=== PATIENT | male | born 1955 | race Caucasian/White ===

== ENCOUNTER 2019-06-04 08:42 | Day surgery (SDC) | payer BC ==
[~2019-06-04 08:42] MED LIST: ACETAMINOPHEN 1,000 MG/100 ML BTL IVPB ONE
[2019-06-04] MEDS ORDERED: DEXAMETHASONE 4 MG/ML 1ML VIAL IVP ONE (08:43)
[2019-06-04] MEDS ORDERED: ONDANSETRON HCL IV 4 MG/2 ML VIAL IVP ONE (08:43)
[2019-06-04] MEDS ORDERED: KETOROLAC 30 MG/ML VIAL IVP ONE (08:43)
[2019-06-04] MEDS ORDERED: LIDOCAINE 2% MDV (20MG/ML) 20ML VIAL IV ONE (08:43)
[2019-06-04] MEDS ORDERED: SEVOFLURANE 250 ML INH ONE (08:43)
[2019-06-04] MEDS ORDERED: MIDAZOLAM HCL 2MG/2ML VIAL IV ONE (08:43)
[2019-06-04] MEDS ORDERED: FENTANYL PF 100MCG/2ML VIAL IV ONE (08:43)
[2019-06-04] MEDS ORDERED: PROPOFOL 10 MG/ML VIAL IV ONE (08:43)
[2019-06-04 08:55] LABS: ABSOLUTE NEUTROPHIL COUNT 3.67; BASO % 0.3 % (0-6); EOS % 2.1 % (0-6); GRAN % 54.7 % (47-80); HEMATOCRIT 44.8 % (42.0-52.0); HEMOGLOBIN 14.7 gm/dl (14.0-18.0); LYMPH % 32.6 % (16-45); MEAN CELL VOLUME 88.7 fl (81-97); MEAN CORPUSCULAR HEMOGLOBIN 29.1 pg (27-33); MEAN CORPUSCULAR HGB CONC 32.8 g/dl (32-36); MEAN PLATELET VOLUME 8.4 fl (7.4-10.4); MONO % 10.3 % (0-9); PLATELET COUNT 178 K/uL (130-400); RED BLOOD COUNT 5.05 M/uL (4.40-5.70); RED CELL DISTRIBUTION WIDTH 12.6 % (11.5-14.5); WHITE BLOOD COUNT W/O DIFF 6.7 K/uL (4.2-12.2)
[2019-06-04] MEDS ORDERED: RINGERS SOLUTION,LACTATED 1,000 ML IV ONE ×2 (09:10→10:25)
[2019-06-04 09:13] LABS: BLOOD UREA NITROGEN 16 mg/dL (8-23); CREATININE 0.9 mg/dL (0.7-1.2); EST GLOMERULAR FILTRATION RATE > 60 mL/min; GLUCOSE,RANDOM 92 mg/dL (74-109)
[2019-06-04] MEDS ORDERED: BUPIVACAINE 0.25% W/EPI MPF 30ML VIAL SQ ONE (10:36)
--- NOTE | 2019-06-05 13:40 | Operative Note ---
DATE OF SURGERY: 06/04/2019 PREOPERATIVE DIAGNOSES: 1. Torn medial meniscus of the right knee. 2. Chondromalacia of the right knee. POSTOPERATIVE DIAGNOSES: 1. Torn medial meniscus of the right knee. 2. 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 OPERATION: 1. Arthroscopic partial medial meniscectomy right knee. 2. Arthroscopic chondroplasty of the patella and medial femoral condyle right knee. SURGEON: Navdeep Man D.O. ANESTHESIA: General. PROCEDURE: This 63-year-old male was taken to the operating room and placed in the supine position on the operating room table. A general anesthetic was administered and the right lower extremity was elevated. It was exsanguinated and the tourniquet inflated to 300 mmHg. Arthroscopic knee de anda applied. The right knee prepped with Hibiclens and draped in the usual sterile fashion. An inferior lateral portal was established with a 4 mm arthroscope and initial evaluation of the joint demonstrated normal appearance of the suprapatellar pouch. The patient demonstrated advanced grade 3 changes noted throughout the entire articulating surface of the patella, mostly the medial facet. An inferior medial portal was established and probing revealed grossly unstable articular cartilage and chondroplasty was performed. The trochlea appeared to be spared. The medial and lateral gutters were examined and found to be normal. The medial compartment was entered and a complex tear of the posterior horn of the medial meniscus was present and utilizing the basket forceps and rotating shaver we resected back to a normal stable meniscal rim, resecting unstable fragments using the rotating shaver to further smooth and contour the meniscus. It was then reprobed and confirmed to be stable. In addition, there was grade 2 chondromalacia of the entire weightbearing surface of the medial femoral condyle with loose fragments of articular cartilage being identified there and chondroplasty was performed to stabilize the articular cartilage of the medial femoral condyle. The intracondylar notch was examined and found to be normal. The lateral compartment was entered and no pathology identified in the lateral compartment. The joint was copiously irrigated and suctioned. All areas were re-examined and no additional findings were present. The joint was suctioned. The instruments were removed. The portals were infiltrated with 0.25% Marcaine with epinephrine. Sterile dressings applied. The tourniquet and knee de anda were released and the patient taken to the recovery room in satisfactory condition. GROSS PATHOLOGY: There is a grade 3 chondromalacia of the patella, mostly in the medial facet, with the lateral facet showing grade 2 changes. The trochlea appeared to be spared, the medial femoral condyle, the entire weightbearing surface showed grade 2 changes, there was a complex flap and horizontal cleavage tear of the posterior horn of the medial meniscus as described. MTDD
== END 2019-06-04 11:50 | disposition home or self-care (01) ==
LOC: SUR 08:42
PROVIDERS: ATTEND Orthopaedic Surgery
DX: S83.231A Complex tear of medial meniscus, current injury, right knee, initial encounter (principal); M94.261 Chondromalacia, right knee; E78.00 Pure hypercholesterolemia, unspecified; G47.33 Obstructive sleep apnea (adult) (pediatric); Z86.718 Personal history of other venous thrombosis and embolism
CPT/HCPCS: 80048; 85025; J1885; J2405; J7120